=== PATIENT | female | born 1980 | race Caucasian/White ===

== ENCOUNTER 2017-02-27 17:33 | Emergency (ER) | payer OTHER ==
[~2017-02-27] VITALS: Ht 154.9 cm; Wt 109.1 kg
[~2017-02-27 17:33] MED LIST: DESO1TAB4 PO; LEVA15HF5 IH; LORA-773 PO; NPR500T PO
[2017-02-27 17:39] VITALS: BP 156/99; PULSE 115; PULSE 126; RESP 20; RESP 24; O2SAT 98
--- NOTE | 2017-02-27 17:49 | ED.REPORT ---
HPI-General Illness Date of Service Feb 27, 2017 ED Provider: Rangel Carranza MD Patient is a 36 year old female with a history of asthma who presents to the ED from Urgent Care complaining of difficulty breathing that began this morning. The patient states that she was outside yesterday on [facility], which irritated her seasonal allergies, she has also been having runny nose and symptoms of upper respiratory infection. She admits to an associated cough that is nonproductive but denies fever or chills. She has a Dulera and Xopanex inhaler at home, but states that she does not use a spacer. She does not use a spacer because she "does not like it and does not need it". The patient also has a nebulizer at home. The patient has never perviously been intubated or admitted to the hospital due to an asthma exacerbation. She denies any recent long plane rides, car rides, or periods of immobilization. She denies a history of a blood clot or pulmonary embolism. She denies any pleuritic chest pain. She states that this is a typical asthma exacerbation. Nursing Notes Stated Complaint: ASTHMA AND HIGH HEART RATE SENT FROM Chief Complaint: Respiratory Complaints Nursing Notes Reviewed: Yes Allergies: Coded Allergies: Sulfa (Sulfonamide Antibiotics) (Verified Allergy, Severe, Nausea,Vomiting , 05/25/15) azithromycin (Verified Allergy, Unknown, vomiting, 04/20/15) codeine (Verified Allergy, Unknown, vomiting, 04/20/15) erythromycin base (Verified Allergy, Unknown, Nausea,Vomiting, 05/25/15) Scheduled PRN Levalbuterol Tartrate (Xopenex Hfa) 15 Gm Hfa.aer.ad 1 PUFF IH Q4 PRN PRN For Shortness of Breath Loratadine/Pseudoephedrine (Claritin-D 24 Hour Tablet) 1 Each Tab.er.24h 1 EACH PO DAILY PRN PRN For Congestion Naproxen (Naproxen) 500 Mg Tab 500 MG PO BID PRN PRN For Pain Miscellaneous Medications Desogestrel/Ethinyl Estradiol (Apri) 1 Each Tablet 1 EACH PO General Time Seen by MD: 17:48 Chief Complaint Breathing problem Hx Obtained From: Patient Arrived By: Walk-in Onset Occurred: 13 - 16 hours ago Symptom Duration: Since onset Location: : Chest Quality: Painful, Pleuritic Severity: Current: Mild Severity: Maximum: Mild Recent Healthcare: No recent doctor visit, No recent hospitalization Similar Sx Previous: Yes Past Medical History Past Medical History Asthma Allergies Bursitis in hip and shoulder Gallstones Past Surgical History None Family History Noncontributory Smoking History Former Smoker Social History Alcohol Use: Denies alcohol use Drug Use: Denies drug use Other Social History: Good social support, Local resident Ambulatory Status Independent Review of Systems Full Review of Systems Constitutional: Denies: Chills, Fever Respiratory: Reports: Non-productive cough, Shortness of breath Cardiovascular: Reports: Chest pain Complete sys rev & neg: except as marked. Physical Exam Vital Signs Vital Signs Date Time Temp Pulse Resp B/P Pulse Ox O2 Delivery O2 Flow Rate FiO2 02/27/17 21:36 118 22 129/71 96 Room Air 02/27/17 20:07 38.1 118 18 162/91 95 Room Air 02/27/17 18:05 112 20 98 Room Air 02/27/17 17:39 36.8 126 24 156/99 98 Room Air Initial VS: Reviewed Head / Eyes: Atraumatic, Normocephalic, PERRL ENT: Mucous membranes moist, Conjunctiva normal, No scleral icterus Abdomen / GI: Soft, Non-tender, No distention Skin: Warm, Dry, No cyanosis Neurologic: Alert, Oriented, Nonfocal Psychiatric: Mood/affect normal, Behavior normal, Normal thought content General/Constitutional: Awake, Alert, No acute distress Appearance / Presentation: Positive: Obese Neck: Supple, Full range of motion Respiratory / Chest: No respiratory distress, No retractions Coarse breath sounds bilaterally. Prolonged expiratory phase and diffuse wheeze. Cardiovascular: Regular rhythm, Heart sounds NL, No murmurs, No rubs Heart Rate / Rhythm: Positive: Tachycardia Upper Extremities Upper Extremity / MS: No swelling, No edema Lower Extremity / Pelvis / MS: No swelling, Non-tender (no calf tenderness), No edema Interpretation & Diagnostics X-Ray Chest Interpretation Chest Xray Interpretation: IMPRESSION: 1. No acute cardiopulmonary disease. Dictated by: Manolo Zaidi M.D. on 02/27/2017 at 19:32 Approved by: Manolo Zaidi M.D. on 02/27/2017 at 19:33 View: AP & lat Interpretation / Wet Read by: Interpret - Radiologist Re-Eval/Medical Decision Med Decision/Clinical Course Patient is a 36 year old female with a history of asthma who presents to the ED from Urgent Care complaining of difficulty breathing that began this morning. The patient states that she was outside yesterday on [facility], which irritated her seasonal allergies, she has also been having runny nose and symptoms of upper respiratory infection. She admits to an associated cough that is nonproductive but denies fever or chills. She has a Dulera and Xopanex inhaler at home, but states that she does not use a spacer. She does not use a spacer because she "does not like it and does not need it". The patient also has a nebulizer at home. The patient has never perviously been intubated or admitted to the hospital due to an asthma exacerbation. She denies any recent long plane rides, car rides, or periods of immobilization. She denies a history of a blood clot or pulmonary embolism. She denies any pleuritic chest pain. She states that this is a typical asthma exacerbation. Upon arrival to the emergency department the patient is in no significant respiratory distress though has decreased air movement throughout both lung ivan with prolonged expiratory phase and wheezing. She is tachycardic in the 1 teens though otherwise hemodynamically stable. Note she did develop a fever of 38.1 while here in the emergency department. CXR: Obtained, reviewed and interpreted by myself shows no evidence of infiltrates, effusions or pneumothorax. Cardiac and mediastinal silhouette normal. No bony or soft tissue abnormalities. Here the patient was treated with 2 [id number] DuoNeb, 1 L of normal saline and 125 mg of IV methylprednisolone. She reported significant symptomatic improvement though she did remain tachycardic after receiving duo nebs. Given her tachycardia I did consider pulmonary embolism in this patient however the overall presentation is not particularly suggestive of PE. She is without pleuritic chest pain, exogenous estrogen use, history of prior thromboembolism and physical exam findings are not suggestive of DVT, she has no hypoxia on room air. I discussed PE evaluation with the pt and she declines this workup. There is no evidence of pneumonia or pneumothorax on chest x-ray. The patient remained with good oxygen saturation on room air and in no respiratory distress. Of note during my discussion with the patient regarding her evaluation thus far and further recommendations for treatment/testing she became quite agitated and at times very confrontational with both myself as well as nursing staff. He became quite agitated when I questioned the type of prednisone taper that she would be prescribed. She stated that she "knew her body" and that the doctor would "do what she said" or that she would "see a different doctor" and that she would like to "talk with my machining supervisor". She essentially fired me as her physician while in the ER. Given the patient's agitated behavior, dissatisfaction with her treatment I requested that she be seen by a nursing machining supervisor. They evaluated and saw her down in the emergency department. I have sent her home with a prednisone taper and directions to use albuterol inhaler with spacer every 2-4 hours. Of note, due to the patient's dissatisfaction with her care and firing me as her doctor I was not able to fully complete her evaluation and workup. She seems to have good insight into her condition and decisional capacity when she opted to request that I no longer be involved in her evaluation and treatment. She is advised to follow up closely with her primary care physician and return to the emergency department should she desire to see a different physician or be further worked up and she was febrile and tachycardic here and I did not complete my evaluation of her. The patient refused any further treatment from me and demonstrates decisional capacity in her decision to leave the emergency department without being fully worked up or receiving full evaluation. Time of Eval: 19:40 Patient Status: Condition improved Re-Evaluation/Progress Note: Checked the patient after her breathing treatments. She is now improved. The patient is to be discharged home. The patient is to be discharged on the Prednisone and is very insistent that she needs a Prednisone taper. When asked why she needs to have a Prednisone taper she simply states that she "knows her body and I need a taper". She was asked for further clarification and she became upset. Patient states that she would like to see another physician. She was offered a prednisone taper and asked how many days of prednisone she would like to have, the patient then stated that she has no preference. Patient will be discharged home. Counseled Regarding: Diagnosis, Need for follow-up, When/why to return to ED Discharge & Departure Primary Impression: Asthma exacerbation Additional Impressions: Tachycardia Wheezing Fever Fever type: unspecified Qualified Code: R50.9 - Fever, unspecified Aggressive behavior of adult Disposition: Home Discharge Condition All VS Reviewed: Yes Condition: Stable Patient Instructions: Asthma (ED) Additional Instructions: Thank you for seeking care at the emergency room. It is difficult for us to make definitive diagnoses in the ED but we believe that you are experiencing an asthma exacerbation. Our primary goal today in the ED was to evaluate you for any life-threatening conditions. Your evaluation was reassuring. Your chest x-ray did not demonstrate any pneumonia. You will be discharged with a prescription for a prednisone taper. Please use the albuterol inhaler with spacer every 2-4 hours for the next 24-48 hours. You should follow-up with your primary doctor in the next week. You should return to the ED immediately if you develop increased difficulty breathing, fevers, vomiting, cough, shortness of breath, chest pain, lightheadedness, weakness or any other concerning signs or symptoms. Thank you for letting us partake in your care today. I understand that you are upset with the care that was provided today. Recommend that you see your regular doctor or check back into the emergency room and request to be seen by a different physician if you do not feel that your concerns were addressed today. Referrals: Keeley Morales (PCP) Scribe Attestation Portions of this note were transcribed by Corina Otero. I, Dr. Carranza personally performed the history, physical exam and medical decision-making; I reviewed and confirmed the accuracy of the information in the transcribed note. Signed by: Lobito Morrison, 02/27/2017 [id number] copies to: Keeley Morales Beck O MD Feb 27, 2017 17:49 Corina Otero Feb 27, 2017 19:39
[2017-02-27] MEDS ORDERED: Albuterol-Ipratropium 3 mL Inhalation Solution ONE (17:50)
[2017-02-27] MEDS ORDERED: Albuterol 2.5 mg/3 mL Inhalation Solution NEB ONE (17:50)
[2017-02-27] MEDS ORDERED: Albuterol-Ipratropium 3 mL Inhalation Solution NEB ONE (17:55)
[2017-02-27] MEDS ORDERED: Albuterol-Ipratropium 3 mL Inhalation Solution NEB SCH (17:55)
[2017-02-27] MEDS ORDERED: MethylprednisoLONE Sodium Succinate 62.5 mg/mL 2 mL Inj IVPUSH ONE (17:55)
[2017-02-27] MEDS ORDERED: 0.9% Sodium Chloride 1,000 ML IV ONE (17:55)
[2017-02-27 18:05] VITALS: PULSE 112; RESP 20; O2SAT 98
--- NOTE | 2017-02-27 19:35 | DRSVH ---
PROCEDURE: X-RAY CHEST, TWO VIEWS ([id number]) INDICATIONS: cough, shortness of breath TECHNIQUE: 2 views of the chest were acquired. COMPARISON: None. FINDINGS: Surgical changes and devices: None. Lungs and pleura: No pleural effusions or pneumothorax. Lungs are clear. Mediastinum: Mediastinal contours are normal. Heart size is normal. Bones and chest wall: No suspicious bony abnormalities. Soft tissues appear unremarkable. IMPRESSION: 1. No acute cardiopulmonary disease. Dictated by: Manolo Zaidi M.D. on 02/27/2017 at 19:32 Approved by: Manolo Zaidi M.D. on 02/27/2017 at 19:33
[2017-02-27] MEDS ORDERED: _PredniSONE 10 mg Tablet PO SCH ×3 (20:05→20:45)
[2017-02-27] MEDS ORDERED: Albuterol HFA 60 Puff 8 Gm Inhaler INHALATION PRN (20:05)
[2017-02-27 20:07] VITALS: BP 162/91; PULSE 118; RESP 18; O2SAT 95
[2017-02-27 21:36] VITALS: BP 129/71; PULSE 118; RESP 22; O2SAT 96
== END 2017-02-27 21:28 | disposition home or self-care (01) ==
LOC: SED 17:33
DX: J45.901 Unspecified asthma with (acute) exacerbation (principal); R00.0 Tachycardia, unspecified; R06.2 Wheezing; R50.9 Fever, unspecified; F91.9 Conduct disorder, unspecified; Z87.891 Personal history of nicotine dependence; Z88.2 Allergy status to sulfonamides; Z88.8 Allergy status to other drugs, medicaments and biological substances; Z88.5 Allergy status to narcotic agent
CPT/HCPCS: 71020; 94644; 96361; 96374; 99284; J2930; J7030; J7613; J7620